=== PATIENT | male | born 1965 | race Caucasian/White ===

== ENCOUNTER 2016-06-21 14:02 | Emergency (ER) | payer OTHER ==
[~2016-06-21] VITALS: Ht 188 cm; Wt 102.3 kg
[~2016-06-21 14:02] MED LIST: TRAM50TA2 PO
[2016-06-21 14:08] VITALS: BP 161/102; PULSE 96; RESP 20; O2SAT 96
[2016-06-21 14:45] VITALS: BP 159/80; PULSE 81; RESP 17; O2SAT 96
[2016-06-21 15:15] VITALS: BP 154/87; PULSE 84; RESP 19; O2SAT 96
--- NOTE | 2016-06-21 15:15 | ED.REPORT ---
HPI-Chest Pain 40 and Over Date of Service Jun 21, 2016 ED Provider: Patrick Su MD Patient is a 51 year old male who presents to the ED complaining of midline chest tightness onset 3 days ago while napping. His pain is constant, radiates to his lower back, and is exacerbated by deep breaths. Associated symptoms include SOB and a "filmy" feeling in his mouth. He denies cough, fever, vomiting , pain or swelling in his legs, or any other symptoms. Pt does not have a cardiac history. Nursing Notes Stated Complaint: CHEST PAIN Chief Complaint: Chest Pain Nursing Notes Reviewed: Yes Allergies: Coded Allergies: No Known Allergies (Verified Allergy, Unknown, 12/08/14) Scheduled PRN Tramadol (Tramadol) 50 Mg Tablet 100 MG PO HS PRN PRN For Pain General Time Seen by MD: 15:09 Chief Complaint Chest pain Hx Obtained From: Patient Sudden in Onset?: Yes Risk Factors )( CAD Risk Stratification Hypertension SmokingNo Diabetes mellitus, No Hyperlipidemia Risk factors reviewed )( TAD Risk Stratification HypertensionNo Risk factors reviewed )( PE Risk Stratification No , No Previous DVT Risk factors reviewed Past Medical History Past Medical History Asthma Polyps Reports: Hypertension Past Surgical History Colonoscopy Back surgery hernia repair R elbow Family History Noncontributory Smoking History Current Every Day Smoker Social History Alcohol Use: 1-3 per week Drug Use: Denies drug use Other Social History: Local resident Ambulatory Status Independent Review of Systems Constitutional: Denies: Fever Respiratory: Reports: Shortness of breath, Denies: Non-productive cough Cardiovascular: Reports: Chest pain GI: Denies: Vomiting Musculoskeletal: Reports: Back pain, Denies: Extremity pain, Extremity swelling Complete sys rev & neg: except as marked. Physical Exam Initial Vital Signs Vital Signs (First) Date Time Temp Pulse Resp B/P Pulse Ox O2 Delivery O2 Flow Rate FiO2 06/21/16 14:08 37 96 20 161/102 96 Room Air Initial VS: Reviewed Head / Eyes: Atraumatic, Normocephalic Skin: Warm, Dry Neurologic: Alert, Oriented, Nonfocal Psychiatric: Mood/affect normal, Behavior normal, Normal thought content General/Constitutional: Awake, Alert, Well appearing, Well developed Respiratory / Chest: Breath sounds NL, Breath sounds = bilat, No respiratory distress, No chest tenderness Cardiovascular: Heart rate NL, Regular rhythm, Heart sounds NL, No murmurs Abdomen: Soft, Non-tender, No guarding, No rebound Epigastric discomfort Interpretation & Diagnostics Lab Results Interpretation Result Diagram: 06/21/16 1457 06/21/16 1457 Test 06/21/16 14:57 White Blood Count 5.5th/mm3 (3.8-10.1) Red Blood Count 5.31mil/mm3 (4.40-5.80) Hemoglobin 16.9g/dL (13.8-17.2) Hematocrit 49.0% (41.0-50.0) Mean Corpuscular Volume 92.3fL (81-100) Mean Corpuscular Hemoglobin 31.8pg (27.0-35.0) Mean Corpuscular Hemoglobin Concent 34.5% (32.0-37.0) Red Cell Distribution Width 12.7% (12.3-15.4) Platelet Count 216bil/L (150-400) Neutrophils (%) (Auto) 62.9% (40-74) Lymphocytes (%) (Auto) 25.8% (14-46) Monocytes (%) (Auto) 9.1% (4-12) Eosinophils (%) (Auto) 1.1% (0-5) Basophils (%) (Auto) 0.7% (0-3) D-Dimer < 0.5mg/L (<0.50) Sodium Level 137mEq/L (134-144) Potassium Level 4.6mEq/L (3.5-5.2) Chloride Level 101mEq/L (97-108) Carbon Dioxide Level 23mmol/L (18-29) Blood Urea Nitrogen 20mg/dL (6-24) Creatinine 1.09mg/dL (0.76-1.27) Estimat Glomerular Filtration Rate 76mL/min (>59) Glucose Level 116mg/dL (60-99) Calcium Level 9.1mg/dL (8.5-10.1) Magnesium Level 2.2mg/dL (1.6-2.6) Total Bilirubin 0.4mg/dL (0.0-1.2) Aspartate Amino Transf (AST/SGOT) 26U/L (0-50) Alanine Aminotransferase (ALT/SGPT) 33U/L (0-44) Alkaline Phosphatase 62U/L (25-150) Troponin T < 0.010ug/L (0.0-0.011) Total Protein 7.1g/dL (6.4-8.4) Albumin 4.2g/dL (3.4-5.0) ECG Interpretation ECG Interpretation: Sinus rate [address], T changes Time: 15:26 Interpreted by: ED physician X-Ray Chest Interpretation Chest Xray Interpretation: IMPRESSION: No acute pulmonary process. Dictated by: Melissa Dallas M.D. on 06/21/2016 at 15:30 Approved by: Melissa Dallas M.D. on 06/21/2016 at 15:30 View: Portable, 1 view Interpretation / Wet Read by: Interpret - Radiologist Re-Eval/Medical Decision Med Decision/Clinical Course 51-year-old male history of smoking presenting with chest pain 2 days. Reports epigastric substernal pressure. No associated symptoms. Vital signs stable. Labs unremarkable. D-dimer is normal. Troponins negative. EKG is normal. Chest pain resolved prior to discharge. I requested the patient get a GI cocktail however he wanted to leave prior to this being administered. I do not suspect acute cardiac ischemia given normal troponins and normal EKG. No PE suspected given normal d-dimer. Chest x-ray no evidence of pneumonia. Possible gastritis versus anxiety versus other. He has follow-up with primary doctor on Monday. Return precautions given. Time of Eval: 16:22 Patient Status: Condition resolved Re-Evaluation/Progress Note: Discussed lab and imaging results. Patient requesting to go home. Discussed plan for discharge. Patient understands and agrees with plan. All questions addressed at this time. Counseled Regarding: Diagnosis, Lab results, Need for follow-up, When/why to return to ED Discharge & Departure Primary Impression: Non-cardiac chest pain Disposition: Home Discharge Condition All VS Reviewed: Yes Condition: Improved Patient Instructions: Cigarette Smoking and Its Health Risks (GEN), How to Stop Smoking (GEN) Additional Instructions: Thank you for entrusting us with your care today. Your lab results and chest x-ray are reassuring. There is no life-threatening cause for your chest pain today. Stop smoking to help prevent future health risks. Please follow up with your primary care provider within the next week. Return to the emergency department if you experience shortness of breath, dizziness, or any new or worsening symptoms. Referrals: Ventura Hearn MD (PCP) Scribe Attestation Portions of this note were transcribed by Lesvia Shelley. I, Dr. Su personally performed the history, physical exam and medical decision-making; I reviewed and confirmed the accuracy of the information in the transcribed note. Signed by: Lesvia Shelley 06/21/16, 7321 copies to: Ventura Hearn MD, Ben M MD Jun 21, 2016 15:15 LESVIA SHELLEY Jun 21, 2016 15:29
[2016-06-21 15:17] LABS: BASOPHILS % (AUTO) 0.7 % (0-3); EOSINOPHILS % (AUTO) 1.1 % (0-5); MONOCYTES % (AUTO) 9.1 % (4-12); Mean Corpuscular Hemoglobin 31.8 pg (27.0-35.0); Mean Corpuscular Volume 92.3 fL (81-100); NEUTROPHILS % (AUTO) 62.9 % (40-74); Platelet Count 216 bil/L (150-400)
[2016-06-21] MEDS ORDERED: Alum-Mag Hydrox-Simeth 30 mL Suspension PO ONE (15:30)
--- NOTE | 2016-06-21 15:31 | DRSVH ---
PROCEDURE: X-RAY CHEST ONE VIEW, PORTABLE ([id number]) INDICATIONS: CHEST PAIN TECHNIQUE: One view of the chest was acquired. COMPARISON: None. FINDINGS: Surgical changes and devices: None. Lungs and pleura: No pleural effusions or pneumothorax. Lungs are clear. Mediastinum: Mediastinal contours appear normal. Heart size is normal. Bones and chest wall: No suspicious bony lesions. Overlying soft tissues appear unremarkable. IMPRESSION: No acute pulmonary process. Dictated by: Melissa Dallas M.D. on 06/21/2016 at 15:30 Approved by: Melissa Dallas M.D. on 06/21/2016 at 15:30
[2016-06-21 15:37] LABS: TROPONIN T < 0.010 ug/L (0.0-0.011)
[2016-06-21 15:45] VITALS: BP 149/81; PULSE 81; RESP 16; O2SAT 95
[2016-06-21 15:46] LABS: Magnesium 2.2 mg/dL (1.6-2.6)
[2016-06-21 16:15] VITALS: BP 151/91; PULSE 83; RESP 21; O2SAT 95
[2016-06-21 16:40] VITALS: BP 143/76; PULSE 81; RESP 21; O2SAT 95
== END 2016-06-21 16:31 | disposition home or self-care (01) ==
LOC: SED 14:02
DX: R07.89 Other chest pain (principal); I10 Essential (primary) hypertension; J45.909 Unspecified asthma, uncomplicated; F17.200 Nicotine dependence, unspecified, uncomplicated